=== PATIENT | male | born 1955 | race Two or more races ===

== ENCOUNTER → 2019-04-18 | Emergency (ER) | payer OTHER ==
[~2019-04-18] VITALS: Ht 190.5 cm; Wt 154.2 kg
[~2019-04-18] MED LIST: CLONAZEPAM2 MG; LOSARTAN-HCTZ1 EACH; TRAZODONE HCL50 MG
== END | disposition home or self-care (01) ==
LOC: ER 18:17
DX: L03.116 Cellulitis of left lower limb (principal)